=== PATIENT | female | born 1990 | race Caucasian/White ===

== ENCOUNTER 2021-08-13 08:00 | Inpatient (IN) | payer OTHER ==
[2021-08-07 10:31] VITALS: BMI 25.4
[2021-08-27] MEDS ORDERED: SUCCINYLCHOLINE CHLORIDE 200 MG/10 ML SYRINGE ONE (07:54)
[2021-08-27] MEDS ORDERED: PROPOFOL 20 ML ONE ×3 (07:54)
[2021-08-27] MEDS ORDERED: MIDAZOLAM HCL 2 MG/2 ML SINGLE DOSE VIAL ONE (07:54)
[2021-08-27] MEDS ORDERED: ROCURONIUM BROMIDE 100 MG/10 ML VIAL ONE (07:58)
[2021-08-27] MEDS ORDERED: ceFAZolin SODIUM 1 GM VIAL IVPB ONE (08:40)
[2021-08-27] MEDS ORDERED: ONDANSETRON 4 MG/2 ML VIAL ONE ×3 (08:41→17:51)
[2021-08-27] MEDS ORDERED: DEXAMETHASONE SOD PHOSPHATE 4 MG/1 ML VIAL ONE (08:41)
[2021-08-27] MEDS ORDERED: ceFAZolin SODIUM 1 GM VIAL ONE (08:42)
[2021-08-27] MEDS ORDERED: HYDROmorphone HCl 2 MG/ML VIAL ONE (08:54)
[2021-08-27] MEDS ORDERED: DESFLURANE GAS 240 ML BOTTLE IH ONE (09:03)
[2021-08-27] MEDS ORDERED: KETOROLAC TROMETHAMINE 30 MG/1 ML VIAL ONE (10:48)
[2021-08-27] MEDS ORDERED: LACTATED RINGERS SOLUTION 1,000 ML IV SCH (11:45)
[2021-08-27] MEDS: ACETAMINOPHEN 1000 MG/100 ML BAG IVPB PRN ×2 (12:42→20:57)
[2021-08-27] MEDS: HYDROmorphone HCl 2 MG/ML VIAL IVPUSH PRN ×4 (13:14→14:26)
[2021-08-27] MEDS: ONDANSETRON 4 MG/2 ML VIAL IVPUSH PRN (15:47)
[2021-08-27] MEDS ORDERED: ONDANSETRON 4 MG/2 ML VIAL IVPUSH ONE (17:46)
[2021-08-28] MEDS: ONDANSETRON 4 MG/2 ML VIAL IVPUSH PRN (00:03)
[2021-08-28] MEDS: ACETAMINOPHEN 1000 MG/100 ML BAG IVPB PRN ×2 (03:18→09:20)
[2021-08-28 10:59] LABS: BASO % 0.1 % (0-2.0); EOS % 0.1 % (0-4.5); HEMATOCRIT 28.8 % (32.4-45.2); HEMOGLOBIN 9.9 GM/dL (10.7-15.3); LYMPH % 15.7 % (8-40); MCH 33.2 pg (25.7-33.7); MCHC 34.2 g/dl (32.0-36.0); MEAN CELL VOLUME 97.1 fl (80-96); MONO % 8.5 % (3.8-10.2); NEUT % 75.6 % (42.8-82.8); PLATELET COUNT 241 10^3/uL (134-434); RBC 2.97 M/mm3 (3.60-5.2); RDW 12.6 % (11.6-15.6); WHITE BLOOD COUNT 9.4 K/mm3 (4.0-10.0)
[2021-08-28 11:25] LABS: CALCIUM 8.5 mg/dL (8.5-10.1)
[2021-08-28 11:29] LABS: CREATININE 0.7 mg/dL (0.55-1.3)
[2021-08-28 11:31] LABS: TOT PROT 6.2 g/dl (6.4-8.2)
[2021-08-28 11:37] LABS: ALBUMIN 3.2 g/dl (3.4-5.0)
[2021-08-28] MEDS: IBUPROFEN 600 MG TABLET (FP) PO PRN ×2 (14:49→21:24)
[2021-08-28] MEDS ORDERED: DOCUSATE SODIUM 100 MG CAPSULE (FP) PO PRN (18:57)
[2021-08-28] MEDS: FERROUS SO4 325 MG TABLET (FP) PO SCH (21:24)
[2021-08-28] MEDS: ASCORBIC ACID 500 MG TABLET (FP) PO SCH (21:24)
[2021-08-29] MEDS: IBUPROFEN 600 MG TABLET (FP) PO PRN ×2 (03:04→09:55)
[2021-08-29 05:03] VITALS: RESP 18
[2021-08-29 08:22] VITALS: BP 118/74; PULSE 86; TEMP 98.7
[2021-08-29] MEDS: FERROUS SO4 325 MG TABLET (FP) PO SCH (09:55)
[2021-08-29] MEDS: ASCORBIC ACID 500 MG TABLET (FP) PO SCH (09:55)
== END 2021-08-29 11:40 | disposition home or self-care (01) | DRG 519 ==
LOC: J2C 08-27 04:02 → J3W 08-27 18:19
PROVIDERS: ADMIT Obstetrics & Gynecology Maternal & Fetal Medicine; ATTEND Obstetrics & Gynecology Maternal & Fetal Medicine
PROC: 0UB90ZZ Excision of Uterus, Open Approach (ICD-10-PCS; principal; 2021-08-27 08:00)
DX: D25.1 Intramural leiomyoma of uterus (principal); N85.8 Other specified noninflammatory disorders of uterus; N92.6 Irregular menstruation, unspecified; M54.9 Dorsalgia, unspecified
CPT/HCPCS: 36415; 80053; 81025; 84702; 85025; 86850; 86900; 86901; 88305-TC; 94010; 94760; C9803-CS; U0003; U0005